=== PATIENT | female | born 2005 | race Hispanic/Latino ===

== ENCOUNTER 2024-04-18 20:55 | Emergency (ER) | payer OTHER, SELFPAY ==
[2024-04-18 21:16] LABS: % Basophils 0.6 % (0-2); % Eosinophils 0.3 % (0-6); % Immature Granulocytes 0.3 % (0-0.5); % Lymphocytes 37.5 % (20.5-51.1); % Monocytes 6.4 % (1.7-9.3); % Neutrophils 54.9 % (42.2-75.2); Absolute Basophils 0.1 10^3/uL (0-0.2); Absolute Lymphocytes 3.4 10^3/uL (1.2-3.4); Absolute Monocytes 0.6 10^3/uL (0.1-0.6); Absolute Neutrophils 4.9 10^3/uL (1.4-6.5); Hematocrit 37.3 % (37.0-47.0); Hemoglobin 12.6 g/dL (12.0-16.0); Mean Corp Hgb Conc. 33.8 g/dL (33.0-37.0); Mean Corpuscular Hgb 28.9 pg (27.0-31.0); Mean Corpuscular Volume 85.6 fL (81.0-99.0); Mean Platelet Volume 10.2 fL (7.4-10.4); Nucleated Red Blood Cells % 0 %; Platelet Count 304 10^3/uL (130-400); Red Blood Cell Count 4.36 10^6/uL (4.20-5.40)
[2024-04-18 21:17] LABS: HCG, Urine Qualitative Screen Negative
[2024-04-18 21:20] LABS: Urine Albumin 3+ (Neg - Trace); Urine Bilirubin Negative (Negative); Urine Character Clear (Clear); Urine Color Yellow; Urine Glucose Negative (Negative); Urine Ketone 2+ (Negative); Urine Leukocyte 1+ (Negative); Urine Nitrite Negative (Negative); Urine Occult Blood 4+ (Negative); Urine Specific Gravity 1.025 (<1.030); Urine Urobilinogen 2+ (Neg - 1+)
[2024-04-18 21:27] LABS: INR 1.02; PT 13.9 Sec (11.4-14.6)
[2024-04-18 21:29] LABS: ALT (SGPT) 19 U/L (0-35); AST (SGOT) 27 U/L (14-36); Albumin 5.9 g/dl (3.5-5.0); Alkaline Phosphatase 63 U/L (38-126); Blood Urea Nitrogen 21 mg/dl (7-17); Calcium 9.7 mg/dl (8.4-10.2); Carbon Dioxide 27 mmol/L (22-30); Chloride 99 mmol/L (98-107); Glucose 103 mg/dl (70-99); Potassium 3.7 mmol/L (3.5-5.1); Sodium 141 mmol/L (135-145); Total Bilirubin 2.3 mg/dl (0.2-1.3); Total Protein 9.8 g/dl (6.3-8.2); eGFR > 60.00
[2024-04-18 22:24] LABS: Urine Amorphous Seen; Urine Squamous Cell >30 /LPF (Few)
[2024-04-18 22:25] LABS: Urine Bacteria Few (Negative); Urine Red Blood Cell 0-2 /HPF (0-2); Urine White Cell 0-2 /HPF (0-5)
[2024-04-18 22:44] VITALS: BMI 36.1
[2024-04-18 22:45] VITALS: BP 132/80
--- NOTE | 2024-04-18 22:47 | ED.GENMED ---
History of Present Illness
General
Chief Complaint: Urinary Symptoms
Source: patient
Exam Limitations: none
Time Seen by Provider: 04/18/24 21:52
Nursing documentation reviewed up to this point in time: agreed with
History of Present Illness
History of Present Illness:
pt is a 19 y/o F with h/o iron deficiency, graves disease, thyroidectomy int he past on syndthroid
here for painless hematuria x 2-3 days
waxing and waning appearance of the ruine, somietmes looking orange, someties dark, occ pink
has IUD and doesn't believe she has had any vaginal bleeding
says she has no back pain, nause,a vomiting, diarrhea, fever
but she has had episodes of rigors/chills with teeth chattering, very cold mostly at night for about 6 months a few times a month
she had labs 6 mo ago for it and had some low vit b12 levels, iron levels and her TSH was high
she had her levothryoxine bumped up
but she still has also had this happen, and more recently has had a few more episodes than normal so she had labs again
with cbc tsh cortisol
her tsh was 145 and free t4 was 0.2
her cortisol was 5.6
cbc normal
pt has not had any discussion with her PCP about this yet.
she came today because of the change in urination
Past History
Past History
ED Past Medical History: Hypothyroidism
Patient has exhibited threatening behavior?: No
Social History
Tobacco: Non-smoker
Alcohol: None
Drug: None
Personal: Single
Living: with family
Review of Systems
Review of Systems
Allergies reviewed?: Yes
All Other Systems: Not applicable
Phy Exam
Physical Exam
Physical Exam:
GENERAL: Alert , in no apparent distress, well appearing
EYE: pupils equal and reactive no scleral icterus noted
NECK: Supple
ENT: o/p clr, mmm.
CARDIAC: Regular rate and rhythm .
LUNGS: Clear breath sounds bilaterally, no acute respiratory distress, no wheezes/rales/rhonchi
ABDOMEN: Soft, without focal tenderness, no r/g, no cvat, normal bowel sounds
NEUROLOGICAL: Alert and oriented, no focal neuro deficits
SKIN: Warm and dry, skin intact.
MUSCULOSKELETAL: No edema, well perfused. neg dar's sign
PSYCH: Normal and appropriate interaction.
Course
Orders/Labs/Results
Orders:
Orders
04/18/24 20:59
Test Result ONCE
04/18/24 21:06
Complete Blood Count/With Diff Urgent
Comprehensive Metabolic Panel Urgent
Monotest Urgent
Comment: ADD ON
Prothrombin Time Urgent
04/18/24 21:08
HCG, Urine Qualitative Screen Urgent
Date Specimen was Collected: 04/18/24
Time Specimen was Collected: 20:59
04/18/24 21:09
Urinalysis Reflex To Culture Urgent
Date Specimen was Collected: 04/18/24
Time Specimen was Collected: 20:59
Urine Microscopic Reflex Cult Urgent
Urine Culture Urgent
SUNITA Source: U
Specimen Description:
Date Specimen was Collected: 04/18/24
Time Specimen was Collected: 20:59
04/18/24 22:23
Add On- LAB Urgent
Tests Added?: mono, hcg serum qualitative
CT Abd/Pel (IV only)-DH only Urgent
Comment:
Reason For Exam: hematuria, elevated bilirubin, night rigors
Abnormal Lab Results
04/18/24 04/18/24
21:06 21:09
BUN 21 H mg/dl
(7-17)
Glucose 103 H mg/dl
(70-99)
Total Bilirubin 2.3 H mg/dl
(0.2-1.3)
Total Protein 9.8 H g/dl
(6.3-8.2)
Albumin 5.9 H g/dl
(3.5-5.0)
Urine Ketones 2+ A
(Negative)
Ur Occult Blood Reflex 4+ A
(Negative)
Urine Urobilinogen 2+ A
(Neg - 1+)
Leukocyte Esterase Rfl 1+ A
(Negative)
Urine Bacteria (Reflex) Few A
(Negative)
Urine Albumin (Reflex) 3+ A
(Neg - Trace)
Monoscreen Positive A
(Negative)
04/18/24 21:06
04/18/24 21:06
Vital Signs
Initial and Last Documented VS:
Initial Vital Signs
Temp Pulse Resp BP Pulse Ox
36.9 C 57 20 132/80 98
04/18/24 22:45 04/18/24 22:45 04/18/24 22:45 04/18/24 22:45 04/18/24 22:45
Last Documented Vital Signs
Temp Pulse Resp BP Pulse Ox
36.9 C 57 20 132/80 98
04/18/24 22:45 04/18/24 22:45 04/18/24 22:45 04/18/24 22:45 04/18/24 22:45
MDM/Problems Addressed
Differential Diagnosis Includes:
hematuria, hyperbilirubinemia, hypothyroidism, liver disease, kidney cancer, bladder cancer, kidney stone
MDM/Problems Addressed:
19 y/o F
grave diseaes age 13
post thyroidecomty
on syndthroid
she started having chills here and there, franklyn at night for the past 6 mo
tsh was 10 in 12/2023; was on 175 mcg of syntrhoid and no changes made
tried to see endocrine but couldn't
she says the chills happene dmore the past 3 weeks so she went back to PCP an dhad labs
TSH 144 free t4 0.2
pcp did not call pt or adjust meds she says
3 days painless dark urine
no abd pain
no back pain
novomiting
here well appearing
urine looks like 4+ blood but no RBCs; bilirubinemia; and urobilinogen
renal function normal
mono +
hcg neg
ct unremarkable
d/w ed attending
recommended 300 mcg of sythrhoid and repeat labs
the bili could be downtrending from mono?
return precautions
*Critical Care Note
Total Time (30-74mins, 75-104mins- exclusive of procedures): Not Applicable
ED Attending Note
-
Portions of this chart may have been created with voice recognition software.� Occasional wrong word or��sound alike� substitutions may have occurred due to the inherent limitations of voice recognition software.
Discharge Plan
Departure
Patient Disposition: Home (Routine Discharge)
Date of Disposition: 04/19/24
Time of Disposition: 00:01
Patient with high blood pressure during this ER visit?: No
Condition: Fair
Covid-19: Not Applicable
Discharge Problem:
Hypothyroidism, Hyperbilirubinemia, Mononucleosis
Instructions: Hypothyroidism (underactive thyroid), Mononucleosis
Prescriptions:
New
levothyroxine 150 mcg capsule
300 mcg PO DAILY Qty: 60 0RF
No Action
levothyroxine 175 mcg Tablet
175 mcg PO DAILY
sertraline 50 mg Tablet
50 mg PO DAILY
Referrals:
Alyssa Perdomo MD [Family Provider] - Follow up in 2-3 days
Activity Restrictions/Additional Instructions:
YOU TESTED POSITIVE FOR MONO WHICH COULD BE WHY YOU WEREN'T FEELING WELL A FEW WEEKS AGO
MONO CAN RAISE YOUR LIVER MARKERS AND COULD POSSIBLY BE RESPONSIBLE FOR CAUSING YOU TO HAVE BILIRUBIN ELEVATED IN YORU BLOOD AND SPILL INTO YOUR URINE LOOKING LIKE BLOOD
THERE WASN'T BLOOD IN YOUR URINE
WHAT IS MORE CONCERNING IS YOUR TSH
TRY TAKING 300 MCG OF SYNTHROID AND MAKING SURE TO HAVE YOUR TSH RECHECKED IN A FEW WEEKS
RETURN FO RANY CONCERNS
YOU ALSO NEED TO HAVE YOUR LIVER MARKERS RECHECKED TO BE SURE YOUR BILIRUBIN GOES BAKC DOWN
YOUR CAT SCAN DIDN'T SHOW ANY CONCERNS
MAKE SURE TO AOVID CONTACT SPORTS BECUASE MONO CAN CAUSE YOUR SPLEEN TO ENLARGE.
Interventions
Interventions:
*Risk Screen - Suicide Last Done: 04/18/24 20:57
*General Assessment Last Done: 04/18/24 20:57
*Neglect/Abuse Screening Last Done: 04/18/24 20:57
*ED COVID-19 Vaccine History Last Done: 04/18/24 20:57
Discharge Date and Time
Print Language: TELUGU
[2024-04-18 22:59] LABS: Monotest Positive (Negative)
[2024-04-19 00:16] VITALS: BP 114/56
== END 2024-04-19 00:18 | disposition home or self-care (01) ==
LOC: EMR 20:55
PROVIDERS: Emergency Medicine; EMERGENCY PHYSICIAN Emergency Medicine; FAMILY PHYSICIAN Family Medicine
DX: B27.90 Infectious mononucleosis, unspecified without complication (principal); E03.9 Hypothyroidism, unspecified; R17 Unspecified jaundice; Z97.5 Presence of (intrauterine) contraceptive device
CPT/HCPCS: 99284; 74177; 80053; 81003; 81015; 81025; 85025; 85610; 86308; 87086; Q9967

== ENCOUNTER → 2024-06-05 14:19 | Outpatient (REF) | payer OTHER, SELFPAY | LOC: HWRAD 14:19 | PROVIDERS: ATTENDING PHYSICIAN Family Medicine | DX: R10.0 Acute abdomen (principal); R61 Generalized hyperhidrosis | CPT/HCPCS: 71046; 76700 ==

== ENCOUNTER 2024-06-16 22:24 | Emergency (ER) | payer OTHER, SELFPAY ==
[2024-06-16 22:25] VITALS: BP 134/83
--- NOTE | 2024-06-16 23:05 | ED.GENMED ---
History of Present Illness
<Nolan Hammond MD, Resident - Last Filed: 06/17/24 05:59>
General
Chief Complaint: Back Pain
Time Seen by Provider: 06/16/24 22:36
History of Present Illness
History of Present Illness:
This is a 19-year-old female who presents to ER complaining of mid back pain that radiates to the groin and left side abdomen. Patient reports back pain is chronic, although different this time because it is radiating to the groin. She reports
pain ongoing for the past 1 day. In addition she admits to nausea, chills but denies fever and vomiting. She has not had constipation, diarrhea. She last had a bowel movement this morning. Patient reports urinary frequency and a feeling of
pressure while trying urinate. She denies urinary urgency. She has an IUD, denies vaginal bleeding, with LMP over a year ago. Denies abdominal surgeries, denies hx of kidney stones.
Past History
<Nolan Hammond MD, Resident - Last Filed: 06/17/24 05:59>
Past History
ED Past Medical History: Hypothyroidism
Patient has exhibited threatening behavior?: No
Social History
Tobacco: Non-smoker
Alcohol: None
Drug: None
Personal: Single
Living: with family
Review of Systems
<Nolan Hammond MD, Resident - Last Filed: 06/17/24 05:59>
Review of Systems
All Other Systems: ROS reviewed and negative except as documented in HPI and ROS
Constitutional: Reports chills
Respiratory: Reports no symptoms
Cardiac: Reports no symptoms
ABD/GI: Reports abdominal pain and nausea; Denies vomiting or diarrhea
: Reports frequency; Denies dysuria
Phy Exam
<Nolan Hammond MD, Resident - Last Filed: 06/17/24 05:59>
General Physical Exam
General Presentation: well appearing and mild distress
General Skin: warm and dry
General Mental: alert
ENT Exam
ENT Exam: EOMI and neck supple
Cardiovascular Exam
Cardiovascular Exam: regular rate/rhythm and no edema
Pulmonary Exam
Pulmonary Exam: lungs clear and no respiratory distress
Gastrointestinal Exam
Gastrointestinal Exam: normal bowel sounds, soft, non distended, no masses and tender (Mild tenderness in the mid-epigastric region upon palpation)
Auscultation of Abdomen: normal
Musculoskeletal Exam
Musculoskeletal Exam: full ROM, no edema and other (no tenderness to palpation of spine)
Psychiatric Exam
Psychiatric Exam: normal mood/affect
Course
<Nolan Hammond MD, Resident - Last Filed: 06/17/24 05:59>
Orders/Labs/Results
Orders:
Orders
06/16/24 23:01
0.9% Sodium Chloride 250 ml [Nss] 250 ml IV BOLUS
Ondansetron Injectable [Zofran] 4 mg IV NOW STA
Test Result ONCE
06/16/24 23:18
Complete Blood Count/With Diff Urgent
Comprehensive Metabolic Panel Urgent
HCG, Urine Qualitative Screen Urgent
Date Specimen was Collected: 06/16/24
Time Specimen was Collected: 23:13
Lipase Urgent
Urinalysis Reflex To Culture Urgent
Date Specimen was Collected: 06/16/24
Time Specimen was Collected: 23:13
Urine Microscopic Reflex Cult Urgent
06/17/24 00:00
CT Abd/Pel (IV only)-[facility] only Urgent
Reason For Exam: abdominal pain, chills
06/17/24 00:25
Ketorolac [Toradol] 30 mg IV NOW STA
Abnormal Lab Results
06/16/24
23:18
RBC 3.99 L 10^6/uL
(4.20-5.40)
Hgb 11.9 L g/dL
(12.0-16.0)
Hct 35.1 L %
(37.0-47.0)
Abs Immat Gran (auto) 0.1 H 10^3/uL
(0-0.05)
Immature Gran % 0.6 H %
(0-0.5)
BUN 20 H mg/dl
(7-17)
Glucose 111 H mg/dl
(70-99)
Total Protein 8.4 H g/dl
(6.3-8.2)
Ur Occult Blood Reflex 4+ A
(Negative)
Urine RBC 3-6 A /HPF
(0-2)
Urine Yeast Few A
(Negative)
06/16/24 23:18
06/16/24 23:18
Vital Signs
Initial and Last Documented VS:
Initial Vital Signs
Temp Pulse Resp BP Pulse Ox
97.6 F 85 16 134/83 100
06/16/24 22:25 06/16/24 22:25 06/16/24 22:25 06/16/24 22:25 06/16/24 22:25
Last Documented Vital Signs
Temp Pulse Resp BP Pulse Ox
97.6 F 85 18 134/83 99
06/16/24 22:25 06/16/24 22:25 06/17/24 01:39 06/16/24 22:25 06/17/24 01:39
<Janneth Hernandez, DO - Last Filed: 06/17/24 01:40>
Orders/Labs/Results
Orders:
Orders
06/16/24 23:01
0.9% Sodium Chloride 250 ml [Nss] 250 ml IV BOLUS
Ondansetron Injectable [Zofran] 4 mg IV NOW STA
Test Result ONCE
06/16/24 23:18
Complete Blood Count/With Diff Urgent
Comprehensive Metabolic Panel Urgent
HCG, Urine Qualitative Screen Urgent
Date Specimen was Collected: 06/16/24
Time Specimen was Collected: 23:13
Lipase Urgent
Urinalysis Reflex To Culture Urgent
Date Specimen was Collected: 06/16/24
Time Specimen was Collected: 23:13
Urine Microscopic Reflex Cult Urgent
06/17/24 00:00
CT Abd/Pel (IV only)-[facility] only Urgent
Reason For Exam: abdominal pain, chills
06/17/24 00:25
Ketorolac [Toradol] 30 mg IV NOW STA
Abnormal Lab Results
06/16/24
23:18
RBC 3.99 L 10^6/uL
(4.20-5.40)
Hgb 11.9 L g/dL
(12.0-16.0)
Hct 35.1 L %
(37.0-47.0)
Abs Immat Gran (auto) 0.1 H 10^3/uL
(0-0.05)
Immature Gran % 0.6 H %
(0-0.5)
BUN 20 H mg/dl
(7-17)
Glucose 111 H mg/dl
(70-99)
Total Protein 8.4 H g/dl
(6.3-8.2)
Ur Occult Blood Reflex 4+ A
(Negative)
Urine RBC 3-6 A /HPF
(0-2)
Urine Yeast Few A
(Negative)
06/16/24 23:18
06/16/24 23:18
Vital Signs
Initial and Last Documented VS:
Initial Vital Signs
Temp Pulse Resp BP Pulse Ox
97.6 F 85 16 134/83 100
06/16/24 22:25 06/16/24 22:25 06/16/24 22:25 06/16/24 22:25 06/16/24 22:25
Last Documented Vital Signs
Temp Pulse Resp BP Pulse Ox
97.6 F 85 18 134/83 99
06/16/24 22:25 06/16/24 22:25 06/17/24 01:39 06/16/24 22:25 06/17/24 01:39
<Nolan Hammond MD, Resident - Last Filed: 06/17/24 05:59>
MDM/Problems Addressed
MDM/Problems Addressed:
19-year-old female presents with mid back pain radiating to the groin and left lower abdomen. She has had intermittent chills but denies fever. Laboratory evaluation including urinalysis. Will evaluate with abdominal CT scan. In addition we will
give Zofran for nausea, ketorolac for pain, and start on IV fluids
<Nolan Hammond MD, Resident - Last Filed: 06/17/24 05:59>
*Critical Care Note
Total Time (30-74mins, 75-104mins- exclusive of procedures): Not Applicable
ED Attending Note
<Nolan Hammond MD, Resident - Last Filed: 06/17/24 05:59>
-
Portions of this chart may have been created with voice recognition software.� Occasional wrong word or��sound alike� substitutions may have occurred due to the inherent limitations of voice recognition software.
<Janneth Hernandez DO - Last Filed: 06/17/24 01:40>
ED Attending Note
Patient seen and examined by attending physician: Yes
I performed a history and physical exam of patient and discussed management with resident, I reviewed resident's note and agree with documented findings and plan of care.: Yes
ED Attending Note:
19-year-old female with history of hypothyroidism, Synthroid recently increased earlier this week from 175 mcg to 200 mcg. She presents with complaints of intermittent back pain over the past week, worsening over the past week, mid to lower back
including bilateral flank regions radiating to her abdomen. More recently over the past days she has had more severe left flank pain radiating to her left upper quadrant, left lower quadrant associated with nausea without vomiting. She admits to
intermittent chills and overall not feeling well. She admits to mild urinary urgency but no dysuria nor frequency nor hematuria.
No prior history of kidney stones, no history of ovarian cyst, no history of STI/PID.
Review of records reveals ED visit 2 months ago with complaints of painless hematuria, intermittent chills.
Workup essentially unremarkable, T. bili elevated at 2.3, urine dip positive for blood but microscopic negative for RBCs nor WBCs. CT abdomen pelvis unremarkable.
She apparently has had ongoing abdominal pain and an outpatient abdominal ultrasound performed June 05 was unremarkable.
Last menstrual period July 2023. Patient has IUD in place. Denies risk of .
19-year-old overweight female appears her stated age, bright and alert, pleasant, easily communicative and in no acute distress. Vital signs within normal limits.
Abdomen is soft, minimal tenderness with deep palpation only to the left upper quadrant. No palpable masses. Normoactive bowel sounds. No CVA tenderness bilaterally.
Back: No midline bony tenderness, no palpable paravertebral tenderness. Full range of motion without difficulty nor pain.
Concern for potential ureteric stone, UTI, pyelonephritis, musculoskeletal back pain, irritable bowel syndrome, constipation.
Will check labs, urinalysis. Will give Zofran for nausea. Will consider imaging depending on results.
01:25
Labs are unremarkable, urinalysis unremarkable. CT abdomen pelvis is unremarkable as well.
At this point unclear as to cause for back pain, abdominal pain but appears to be an ongoing issue for quite some time.
Patient may have an element of musculoskeletal back pain, irritable bowel syndrome.
Symptoms may be exacerbated with hypothyroidism.
Recommend prompt follow-up with her PCP and patient has been referred to endocrinology as well as GI.
Discharge Plan
Departure
Patient Disposition: Home (Routine Discharge)
Date of Disposition: 06/17/24
Time of Disposition: 01:22
Patient with high blood pressure during this ER visit?: Yes
Discharge Problem:
Back pain
Prescriptions:
New
ibuprofen 800 mg tablet
800 mg PO Q8H PRN (Reason: Pain) Qty: 10 0RF
No Action
levothyroxine 175 mcg Tablet
175 mcg PO DAILY
sertraline 50 mg Tablet
50 mg PO DAILY
levothyroxine 150 mcg capsule
300 mcg PO DAILY Qty: 60 0RF
Referrals:
Amber French MD [Active] -
Julián Johansen MD [Consulting Staff] -
Alyssa Perdomo MD [Family Provider] -
Interventions
Interventions:
*Risk Screen - Suicide Last Done: 06/16/24 22:27
*General Assessment Last Done: 06/16/24 23:24
*Neglect/Abuse Screening Last Done: 06/16/24 22:27
*ED- Fall Risk Assessment Last Done: 06/17/24 01:39
*ED COVID-19 Vaccine History Last Done: 06/16/24 23:24
*Nursing Disposition Last Done: 06/17/24 01:39
ED-Musculoskeletal Assessment Last Done: 06/16/24 23:24
Discharge Date and Time
Discharge Date/Time: 06/17/24 01:41
Print Language: NICARAGUAN
[2024-06-16] MEDS: NSS 250 IV (23:19)
[2024-06-16] MEDS: ZOFRAN 4 MG IV (23:19)
[2024-06-16 23:24] VITALS: BMI 37.4
[2024-06-16 23:28] LABS: HCG, Urine Qualitative Screen Negative
[2024-06-16 23:29] LABS: % Basophils 0.7 % (0-2); % Eosinophils 2.1 % (0-6); % Immature Granulocytes 0.6 % (0-0.5); % Lymphocytes 41.8 % (20.5-51.1); % Monocytes 3.6 % (1.7-9.3); % Neutrophils 51.2 % (42.2-75.2); Absolute Basophils 0.1 10^3/uL (0-0.2); Absolute Eosinophils 0.2 10^3/uL (0-0.7); Absolute Immature Granulocytes 0.1 10^3/uL (0-0.05); Absolute Lymphocytes 3.4 10^3/uL (1.2-3.4); Absolute Monocytes 0.3 10^3/uL (0.1-0.6); Absolute Neutrophils 4.1 10^3/uL (1.4-6.5); Hematocrit 35.1 % (37.0-47.0); Hemoglobin 11.9 g/dL (12.0-16.0); Mean Corp Hgb Conc. 33.9 g/dL (33.0-37.0); Mean Corpuscular Hgb 29.8 pg (27.0-31.0); Mean Platelet Volume 9.7 fL (7.4-10.4); Nucleated Red Blood Cells % 0 %; Platelet Count 256 10^3/uL (130-400); Red Blood Cell Count 3.99 10^6/uL (4.20-5.40); Red Cell Dist. Width 14.1 % (11.5-14.5); Urine Albumin Negative (Neg - Trace); Urine Bilirubin Negative (Negative); Urine Character Clear (Clear); Urine Color Yellow; Urine Glucose Negative (Negative); Urine Ketone Negative (Negative); Urine Leukocyte Negative (Negative); Urine Nitrite Negative (Negative); Urine Occult Blood 4+ (Negative); Urine Urobilinogen Negative (Neg - 1+)
[2024-06-16 23:39] LABS: ALT (SGPT) 15 U/L (0-35); AST (SGOT) 24 U/L (14-36); Albumin 4.9 g/dl (3.5-5.0); Alkaline Phosphatase 98 U/L (38-126); Blood Urea Nitrogen 20 mg/dl (7-17); Calcium 9.4 mg/dl (8.4-10.2); Carbon Dioxide 26 mmol/L (22-30); Chloride 105 mmol/L (98-107); Estimated Creatinine Clearance 123 ml/min; Glucose 111 mg/dl (70-99); Lipase 107 U/L (23-300); Potassium 4.5 mmol/L (3.5-5.1); Sodium 141 mmol/L (135-145); Total Bilirubin 0.9 mg/dl (0.2-1.3); Total Protein 8.4 g/dl (6.3-8.2); eGFR > 60.00
[2024-06-16 23:49] LABS: Urine White Cell 0-2 /HPF (0-5); Urine Yeast Few (Negative)
[2024-06-17] MEDS: TORADOL 30 MG IV (00:39)
== END 2024-06-17 01:41 | disposition home or self-care (01) ==
LOC: EMR 22:24
PROVIDERS: Student in an Organized Health Care Education/Training Program; EMERGENCY PHYSICIAN Emergency Medicine; FAMILY PHYSICIAN Family Medicine
DX: M54.9 Dorsalgia, unspecified (principal); E03.9 Hypothyroidism, unspecified
CPT/HCPCS: 99284; 96374; 96375; 96361; 74177; 80053; 81003; 81015; 81025; 83690; 85025; Q9967